=== PATIENT | male | born 1960 | race Caucasian/White ===

== ENCOUNTER → 2020-01-26 07:35 | Outpatient (CLI) | payer OTHER, SELFPAY ==
[2019-12-29 13:16] VITALS: BMI 25.9
--- NOTE | 2020-01-26 07:40 | ECHOD_ITS ---
Reason For Study: MVP Procedure This was a 2D Doppler, Color Flow transthoracic echocardiogram. Exam performed in department. Left Ventricle Normal LV size. Left ventricular systolic function is normal. The estimated ejection fraction is 60 %. Normal diastology for age. No regional wall motion abnormalities noted. Right Ventricle Normal RV size. Normal systolic function. Atria Normal left atrium. Normal right atrium. Mitral Valve Moderate mitral valve prolapse. Mild (1+) eccentric mitral valve insufficiency. Tricuspid Valve Normal tricuspid valve. Aortic Valve Trisinus/trileaflet aortic valve. Pulmonic Valve Normal pulmonic valve. Great Vessels Normal aortic root. The pulmonary artery is normal size. Normal inferior vena cava. Pericardium/Pleural No pericardial effusion. MMode/2D Measurements & Calculations LVIDd: 4.3 cm IVSd: 1.2 cm Ao root diam: 3.0 cm LVIDs: 2.4 cm LVPWd: 1.1 cm RVDd: 3.2 cm FS: 44.2 % LAV(MOD-bp): 60.7 ml LVAd ap4: 33.6 cm2 SV(MOD-sp4): 63.5 ml LAV(MOD-bp) Indexed: 28.5 ml/m2 EDV(MOD-sp4): 102.3 ml LAV(MOD-sp2): 59.5 ml EDV(sp4-el): 107.7 ml LAV(MOD-sp4): 51.8 ml LVAs ap4: 18.9 cm2 ESV(MOD-sp4): 38.8 ml ESV(sp4-el): 40.2 ml EF(MOD-sp4): 62.1 % EF(sp4-el): 62.6 % SV(sp4-el): 67.5 ml LA A4 area: 17.1 cm2 LA dimension(2D): 3.8 cm RA A4 area: 14.2 cm2 Doppler Measurements & Calculations MV E max guru: 62.4 cm/sec Lat Peak E' Guru: 3.9 cm/sec Med Peak E' Guru: 5.7 cm/sec MV A max guru: 45.0 cm/sec E/E' lat: 15.8 E/E' med: 11.0 MV E/A: 1.4 Ao V2 max: 144.8 cm/sec LV V1 max: 91.4 cm/sec PA V2 max: 153.9 cm/sec Ao max P.4 mmHg LV V1 max P.3 mmHg TR max guru: 182.8 cm/sec TR max P.4 mmHg Interpretation Summary Normal LV size. Left ventricular systolic function is normal. The estimated ejection fraction is 60 %. Moderate mitral valve prolapse. Mild (1+) eccentric mitral valve insufficiency. Ordering Physician: Alberto Anderson Referring Physician: Alberto Anderson Performed By: Libertad Hidalgo RDCS
== END ==
PROVIDERS: Referring Provider Internal Medicine Cardiovascular Disease; Visit Provider Internal Medicine Cardiovascular Disease
DX: I34.1 Nonrheumatic mitral (valve) prolapse (principal)
CPT/HCPCS: 93306

== ENCOUNTER → 2020-07-14 07:14 | Outpatient (CLI) | payer OTHER, SELFPAY ==
[2020-02-02 14:55] VITALS: BMI 25.7
--- NOTE | 2020-07-14 07:17 | CT_ITS ---
STUDY: CT BRAIN AND SINUSES WITHOUT CONTRAST REASON FOR EXAM: Male, 59 years old. 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 Individualized dose optimization techniques were used for this CT. COMPARISON: No relevant priors. FINDINGS: CT BRAIN CLINICAL HISTORY: 59 years Male, SINUSITIS-RT SIDE, PREV INJURY TO RT EYE HAS RT EYE PROSTHETIC, HX-CVA X 3, PE TECHNIQUE: A CT scan of the head was performed without IV contrast in the axial plane. Coronal and sagittal reconstruction images were also obtained. This exam was performed according to our departmental dose-optimization program, which includes automated exposure control, adjustment of the mA and/or kV according to patient size and/or use of iterative reconstruction technique. FINDINGS: The neida, medulla, and cerebellum appear to be normal. The ventricles and sulci are normal in size and shape. In the posterior right vega radiata using a 6 mm nodular density which contains a peripheral calcification. Calcified granuloma versus a slow growing tumor such as a glioma or oligodendroglioma are all diagnostic possibilities. An MRI of the head with IV contrast is recommended for further evaluation. The basal ganglia appear to be normal. 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 Old fracture deformities are noted involving the right lamina preparation in the floor of the right orbit from a previous right orbital injury.The frontal, ethmoid, left maxillary, and sphenoid sinuses are normal. The mastoid air cells are normal. IMPRESSION: Normal CT scan of the head. 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 Old fracture deformities are noted involving the right lamina papyracea and floor of the right orbit. Frontal Sinus and Recess: The frontal and sphenoid sinuses appear to be normal. The frontoethmoidal recesses and the sphenoethmoid recesses appear to be intact. There is mucoperiosteal reaction involving both ethmoid sinuses. This is causing occlusion of the left maxillary infundibula with mucoperiosteal reaction involving the floor of the left maxillary sinus. Because of the previous fracture of the right lamina papyracea there is mucoperiosteal reaction with occlusion of the right ethmoid sinus and the right maxillary infundibula with atelectasis and mucoperiosteal reaction involving the right maxillary sinus. Nasal Turbinate (Right): Middle Turbinate (Right): Normal. Middle Turbinate (Left): Normal. Inferior Turbinate (Right): Normal. Inferior Turbinate (Left): Normal. Nasal Septum: There is deviation due to a previous healed fracture involving the posterior nasal septum with convexity towards the left. Nasal Airway: Clear. Cribiform Plate / Anterior Cranial Fossa: Normal. Orbits: As mentioned previously the patient has had enucleation of the right eye with a right orbital prosthesis in place and old fracture deformities involving the right lamina papyracea and floor of the right maxillary sinus. CT/Sinus/Facial Bone IMPRESSION: 1. A 6 mm nodular density is noted in the posterior right vega radiata containing peripheral calcification. This probably represents a granuloma, possible old resolved hematoma, however, a partially calcified meningioma cannot be completely excluded and a nonemergent MRI of the head with IV contrast is recommended for further evaluation. 2. Previous injury and enucleation of the right globe with a right orbital prosthesis in place and old fracture deformity involving the medial right lamina papyracea in the floor of the right maxillary sinus. 3. Low-grade sinusitis involving the ethmoid and maxillary sinuses bilaterally. Electronically Signed: Alfred Matta, at 7:55 EST Tel , Service support ,
== END ==
PROVIDERS: Referring Provider Otolaryngology; Visit Provider Otolaryngology
DX: J32.9 Chronic sinusitis, unspecified (principal)
CPT/HCPCS: 70486

== ENCOUNTER 2020-07-26 17:26 | Emergency (ER) | payer OTHER, SELFPAY ==
[2020-02-02 14:55] VITALS: BMI 25.7
[2020-07-26 17:27] VITALS: BP 139/80; PULSE 95; RESP 18; TEMP 36.6; O2SAT 97; BMI 25.0
--- NOTE | 2020-07-26 18:14 | ED.RN ---
1800 PT LWBS, STATES [facility] TO BE SEEN
== END 2020-07-26 18:00 | disposition left against medical advice (07) ==
LOC: ED 18:29
PROVIDERS: Emergency Provider Emergency Medicine
DX: Z53.21 Procedure and treatment not carried out due to patient leaving prior to being seen by health care provider (principal)

== ENCOUNTER → 2020-08-01 10:13 | Outpatient (CLI) | payer OTHER, SELFPAY ==
[2020-02-02 14:55] VITALS: BMI 25.7
[2020-07-26 17:27] VITALS: BMI 25.0
== END ==
PROVIDERS: Referring Provider Otolaryngology; Visit Provider Otolaryngology
DX: Z11.59 Encounter for screening for other viral diseases (principal)
CPT/HCPCS: 87635; C9803; U0003

== ENCOUNTER → 2020-08-17 | Outpatient (CLI) | payer OTHER, SELFPAY ==
[2020-07-26 17:27] VITALS: BMI 25.0
== END | disposition home or self-care (01) ==
LOC: LABSPEC 15:38
PROVIDERS: PCP Internal Medicine; Referring Provider Otolaryngology Otolaryngology/Facial Plastic Surgery; Visit Provider Otolaryngology Otolaryngology/Facial Plastic Surgery
DX: J32.9 Chronic sinusitis, unspecified (principal)
CPT/HCPCS: 87070; 87077; 87186; 87205

== ENCOUNTER → 2020-11-01 | Outpatient (CLI) | payer OTHER, SELFPAY | END | disposition home or self-care (01) | LOC: LABSPEC 15:07 | PROVIDERS: PCP Internal Medicine; Referring Provider Otolaryngology; Visit Provider Otolaryngology | DX: J32.9 Chronic sinusitis, unspecified (principal) | CPT/HCPCS: 87070; 87186; 87205 ==

== ENCOUNTER 2021-11-26 15:28 | Outpatient (CLI) | payer OTHER, SELFPAY ==
--- NOTE | 2021-11-26 15:33 | VDLE_ITS ---
Reason For Study: pain Procedure LEFT This is a venous duplex using B-mode, color GSV is normal. flow and spectral Doppler. CFV is compressible, spontaneous, phasic, Exam performed in department. competent, and demonstrates normal The exam was abbreviated due to the COVID 19 augmentation. protocol. FV is compressible, spontaneous, phasic, The exam was diagnostic. competent and demonstrates normal A preliminary report was called and/or faxed augmentation. to Corey ALBERT. POP V is compressible, spontaneous, phasic, competent and demonstrates normal augmentation. T/P Trunk is compressible. PTV is compressible. LT PerV is compressible. VL/Venous Duplex US, Unilateral Interpretation Summary There is no evidence of left lower extremity deep vein thrombosis. Left great s aphenous vein appears patent and compressible segmentally. Abbreviated COVID-19 protocol utilized Ordering Physician: Corey Cannon Performed By: Jesse Resendiz RVCarlos Manuel
== END 2021-11-26 23:59 | disposition home or self-care (01) ==
LOC: CVS 15:30
PROVIDERS: PCP Internal Medicine; Referring Provider Physician Assistant; Visit Provider Physician Assistant
DX: M79.662 Pain in left lower leg (principal); Z86.73 Personal history of transient ischemic attack (TIA), and cerebral infarction without residual deficits; Z86.711 Personal history of pulmonary embolism
CPT/HCPCS: 93971

== ENCOUNTER → 2022-04-23 | Outpatient (CLI) | payer OTHER, SELFPAY ==
--- NOTE | 2022-04-23 10:15 | EKG12_ITS ---
Test Reason : PREOP Blood Pressure : / mmHG Vent. Rate : 067 BPM Atrial Rate : 067 BPM P-R Int : 160 ms QRS Dur : 108 ms QT Int : 416 ms P-R-T Axes : 070 037 053 degrees QTc Int : 439 ms Normal sinus rhythm Normal ECG When compared with ECG of 28-JUL-2017 18:53, No significant change was found Confirmed by SCARLETT DEY, DAYAN ([id number]), movie editor JUANIS BARNETT ([id number]) on 04/23/2022 1:43:53 PM Referred By: Chino Sena Confirmed By:DAYAN PANTOJA MD
[2022-04-23 11:24] LABS: Hematocrit 44.3 % (40-54); Hemoglobin 14.6 g/dL (13.0-16.5); Mean Corpuscular Hgb 29.3 pg (27.0-32.0); Mean Corpuscular Volume 88.8 fL (80-94); Mean Platelet Vol. 10.1 fl (6.2-12.0); Platelet Count 170 K/mm3 (150-450); RBC Distribution Width CV 12.9 % (11.6-14.6); RBC Distribution Width SD 41.6 fl (35.1-43.9); Red Blood Count 4.99 M/mm3 (4.6-6.2); White Blood Count 6.2 K/mm3 (4.4-11.0)
[2022-04-23 12:00] LABS: Anion Gap 5 (5-15); BUN 18 mg/dL (7-18); BUN/Creat Ratio 17.8 RATIO (10-20); Chloride 107 mmol/L (98-107); Creatinine, Serum 1.01 mg/dL (0.70-1.30); EST Glomerular Filtration Rate 80 mL/min (>60); Est Glom Filt Rate - Afr Amer 96 mL/min (>60); Glucose 98 mg/dL (74-106); Potassium 4.9 mmol/L (3.5-5.1); Sodium Level 141 mmol/L (136-145)
== END | disposition home or self-care (01) ==
LOC: PSN 10:06
PROVIDERS: PCP Internal Medicine; Referring Provider Orthopaedic Surgery; Visit Provider Orthopaedic Surgery
DX: Z01.810 Encounter for preprocedural cardiovascular examination (principal); Z01.818 Encounter for other preprocedural examination
CPT/HCPCS: 36415; 80048; 85027; 93005

== ENCOUNTER → 2023-09-04 | Outpatient (CLI) | payer OTHER, SELFPAY ==
--- NOTE | 2023-09-04 07:12 | CT_ITS ---
STUDY: CT PARANASAL SINUSES WITHOUT CONTRAST REASON FOR EXAM: Male, 63 years old. CHRONIC SINUSITIS RADIATION DOSAGE (If Supplied By Facility): CTDIvol = ( 33.06 ) mGy, DLP = ( 809.06 ) mGycm TECHNIQUE: The patient was scanned in a multi-detector CT scanner. High resolution transaxial imaging was performed and coronal images were reconstructed. Individualized dose optimization techniques were used for this CT. COMPARISON: CT of the sinuses dated July 14, 2020 FINDINGS: Right orbital prosthesis noted. Old fracture deformity of the right orbital floor noted. FRONTAL SINUSES: Normal development and aeration of the bilateral frontal sinuses without mucosal inflammatory disease. ETHMOIDAL SINUSES: Moderate mucus opacification of the bilateral ethmoid air cells. MAXILLARY SINUSES: Redemonstration of moderate to severe mucous opacification of the right maxillary sinus, slightly increased from the prior study. Chronic mucoperiosteal reaction and cortical thickening of the right maxillary sinus. There is partial obstruction of the right ostiomeatal complex. Mild mucosal thickening is present in the anterior wall of the left maxillary sinus. A small mucus retention cyst is also present in the anterior inferior aspect of the left maxillary sinus. SPHENOIDAL SINUSES: Normal aeration of the bilateral sphenoid sinuses and there is no mucosal inflammatory disease. MIDDLE TURBINATES: Normal bilateral middle turbinates without a irma bullosa or paradoxical curvature. INFERIOR TURBINATES: Mild hypertrophy of the right inferior nasal turbinate noted.. NASAL SEPTUM: Normal midline nasal septum and there is no nasal septal mass lesions, deviation or spur. Normal anterior cranial fossa, erik delta and cribriform plate. Normal bilateral orbital contents. Normal nasopharynx without adenoidal pad hypertrophy, or a posterior nasopharyngeal retention cyst. There is no demonstrated enhancing soft tissue or osseous abnormality. MASTOID SINUSES: Normal bilateral mastoid air cells which are clear. Normal bilateral inner ear ossicles and tympanic membranes. The external auditory canals are unremarkable. CT/Sinus/Facial Bone IMPRESSION: 1. Moderate mucus opacification of bilateral ethmoid air cells 2. MAXILLARY SINUSES: Redemonstration of moderate to severe mucous opacification of the right maxillary sinus, slightly increased from the prior study. Chronic mucoperiosteal reaction and cortical thickening of the right maxillary sinus. There is partial obstruction of the right ostiomeatal complex. Mild mucosal thickening is present in the anterior wall of the left maxillary sinus. A small mucus retention cyst is also present in the anterior inferior aspect of the left maxillary sinus. 3. Right orbital prosthesis noted. Old fracture deformity of the right orbital floor noted. Electronically Signed: David White MD at 16:03 EST ,
--- OUTSIDE RECORDS SUMMARY | 2023-09-04 07:12 | XMS RPT_ITS | CCD ---
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 unremarkable. Previous digital rectal exam demonstrated internal hemorrhoid largest was left lateral complex others normal sized Extremities: no clubbing, cyanosis or edema. No adenopathy. Other: LABORATORY VALUES: As Noted RADIOLOGIC STUDIES: As Noted Assessment IMPRESSION: need for screening colonoscopy, left lateral chronic hemorrhoid PLAN: I plan to perform upper and lower endoscopy. We discussed the risks and benefits of the planned endoscopy. I have informed the patient that complications can occur including failure to complete the endoscopy and perforation. The patient had the opportunity to ask questions concerning the planned endoscopy. My staff has also explained the procedure to the patient in understandable terms and has given the patient printed material concerning the procedure. The patient freely consents to surgery. I plan to use golytely bowel preparation for endoscopy I plan to perform an examination under anesthesia, hemorrhoidectomy the following day. The planned surgical procedure was discussed extensively with the patient. The risks, benefits and anticipated outcomes of the procedure, the risks and benefits of the alternatives to the procedure, and the roles and tasks of the personnel to be involved, were discussed with the patient. My staff has also explained the procedure in understandable terms and the patient was given the option to take printed material concerning the planned procedure. The patient had the opportunity to ask questions concerning the planned procedure. The patient freely consents to the planned procedure. Anticipated Surgical Procedure/ CPT Code: Examination Under Anesthesia, Hemorrhoidectomy - 94220-267 Anticipated Anesthetic: General Patient weight: Blood pressure 139/77, pulse 70, temperature 36.6 C (97.8 F), weight 92.9 kg (204 lb 12.8 oz), SpO2 98 %. BMI: Body mass index is 27.78 kg/m . 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 Return to Clinic: The patient is instructed to follow-up with me 1 week post operatively. Oli Fajardo MD documented in this encounter [facility] 05-16-2022 Note HNO ID: [id number] Author: Oli Fajardo MD Service: ? Author Type: Physician Type: Progress Notes Filed: 05/16/2022 5:34 PM Note Text: FOLLOW UP VISIT - HEMORRHOID BANDING NAME: Cong Arcos [facility] NO.: [id number] DATE OF SERVICE: May 16, 2022 : 1960 REFERRING PHYSICIAN: Dinesh Lee NP Cong is a patient I am following for symptomatic internal hemorrhoids. The patient returns for hemorrhoidal banding. They have not take aspirin or other blood thinners for over 7 days. I performed hemorrhoidal banding of the left lateral complex in the past. He notes overall improvement but still notes some symptoms of prolapse and discomfort. The patient also notes swelling over the olecranon area of his right elbow. He was referred to Dr. Sena for what turned out to be a chronic bursitis. He had a drain on this 2 weeks previously. VITALS: Blood pressure 115/75, pulse 70. There is no height or weight on file to calculate BMI. On examination, the patient has prolapsing interal hemorrhoidal at the left lateral complex. Digital rectal exam reveals both the left lateral complex. PROCEDURE: HEMORRHOIDAL BANDING The risks, benefits and anticipated outcomes of the procedure, the risks and benefits of the alternatives to the procedure, and the roles and tasks of the personnel to be involved, were discussed with the patient, and the patient consents to the procedure and agrees to proceed. After consent was obtained and the site, person, and procedure verified, the patient was positioned. A digital rectal exam was performed demonstrating internal hemorrhoids in the left lateral area position without other abnormalities. An anoscope was introduced demonstrating symptomatic internal hemorrhoid in the right anterior complex. The left lateral complex demonstrated an ulcer from the previously placed band. The hemorrhoidal complex was grasped with an forceps without causing discomfort to the patient. A single band was deployed over the right anterior complex. The patient remained asymptomatic. The anoscope was removed. The patient tolerated the procedure well. Assessment IMPRESSION: Status post right anterior interal hemorrhoidal banding PLAN: If the patient notes any problems or pain, they should contact me immediately. The patient was informed that- A small amount of bleeding is common when the hemorrhoid sloughs at 3-5 days. Do not that aspirin for the next week. If you have significant bleeding or other problems, contact our office. He still has mixed prolapse of the left lateral complex which was banded. I discussed with him if this is not improving after the next few attempts would recommend operative hemorrhoidectomy. Diagnoses: No diagnosis found. Return to Clinic: The patient is instructed to follow-up with me in 1 month. Oli Fajardo MD [facility] 05-16-2022 History of Presen t illness Narrative FOLLOW UP VISIT - HEMORRHOID BANDING NAME: Cong Arcos [facility] NO.: [id number] DATE OF SERVICE: May 16, 2022 : 1960 REFERRING PHYSICIAN: Dinesh Lee NP Cong is a patient I am following for symptomatic internal hemorrhoids. The patient returns for hemorrhoidal banding. They have not take aspirin or other blood thinners for over 7 days. I performed hemorrhoidal banding of the left lateral complex in the past. He notes overall improvement but still notes some symptoms of prolapse and discomfort. The patient also notes swelling over the olecranon area of his right elbow. He was referred to Dr. Sena for what turned out to be a chronic bursitis. He had a drain on this 2 weeks previously. VITALS: Blood pressure 115/75, pulse 70. There is no height or weight on file to calculate BMI. On examination, the patient has prolapsing interal hemorrhoidal at the left lateral complex. Digital rectal exam reveals both the left lateral complex. PROCEDURE: HEMORRHOIDAL BANDING The risks, benefits and anticipated outcomes of the procedure, the risks and benefits of the alternatives to the procedure, and the roles and tasks of the personnel to be involved, were discussed with the patient, and the patient consents to the procedure and agrees to proceed. After consent was obtained and the site, person, and procedure verified, the patient was positioned. A digital rectal exam was performed demonstrating internal hemorrhoids in the left lateral area position without other abnormalities. An anoscope was introduced demonstrating symptomatic internal hemorrhoid in the right anterior complex. The left lateral complex demonstrated an ulcer from the previously placed band. The hemorrhoidal complex was grasped with an forceps without causing discomfort to the patient. A single band was deployed over the right anterior complex. The patient remained asymptomatic. The anoscope was removed. The patient tolerated the procedure well. Assessment IMPRESSION: Status post right anterior interal hemorrhoidal banding PLAN: If the patient notes any problems or pain, they should contact me immediately. The patient was informed that- A small amount of bleeding is common when the hemorrhoid sloughs at 3-5 days. Do not that aspirin for the next week. If you have significant bleeding or other problems, contact our office. He still has mixed prolapse of the left lateral complex which was banded. I discussed with him if this is not improving after the next few attempts would recommend operative hemorrhoidectomy. Diagnoses: No diagnosis found. Return to Clinic: The patient is instructed to follow-up with me in 1 month. Oli Fajardo MD UNIVERSAL PROTOCOL / SAFETY CHECKLIST Procedure to be Performed: Anoscopy and hemorrhoidal banding Sign In: A Moment of CARE was completed. Personnel directly involved with the procedure wore the appropriate PPE (Personal Protective Equipment). No special equipment needed. Patient/Surrogate Stated/Verified: PATIENT VERIFIED(optional for EMERGENT procedures): Patient name, Date of , Relevant allergies, and The intended procedure Time Out Communication: Intended patient and procedure match the source documents. Consent documented and matches the intended procedure. No relevant labs, photos, and/or imaging studies were applicable for review. No correct side/site applicable for marking and visibility. No medications required for procedure. No fire risk assessment and interventions applicable. No implant(s) inserted. Sign Out: SIGN OUT (optional for EMERGENT procedures): No specimen collected. All instruments, equipment, possible retained foreign bodies accounted for. Post-procedure follow-up management communicated and Plan of Care Visit completed when applicable. Nalini Burgess RN documented in this encounter [facility] 05-16-2022 Note HNO ID: [id number] Author: Nalini Burgess RN Service: ? Author Type: Registered Nurse Type: Progress Notes Filed: 05/16/2022 5:34 PM Note Text: UNIVERSAL PROTOCOL / SAFETY CHECKLIST Procedure to be Performed: Anoscopy and hemorrhoidal banding Sign In: A Moment of CARE was completed. Personnel directly involved with the procedure wore the appropriate PPE (Personal Protective Equipment). No special equipment needed. Patient/Surrogate Stated/Verified: PATIENT VERIFIED(optional for EMERGENT procedures): Patient name, Date of , Relevant allergies, and The intended procedure Time Out Communication: Intended patient and procedure match the source documents. Consent documented and matches the intended procedure. No relevant labs, photos, and/or imaging studies were applicable for review. No correct side/site applicable for marking and visibility. No medications required for procedure. No fire risk assessment and interventions applicable. No implant(s) inserted. Sign Out: SIGN OUT (optional for EMERGENT procedures): No specimen collected. All instruments, equipment, possible retained foreign bodies accounted for. Post-procedure follow-up management communicated and Plan of Care Visit completed when applicable. Nalini Burgess RN [facility] 05-16-2022 Instructions Nalini Burgess RN - 05/16/2022 9:02 AM EDT The following instructions are important for you related to your office visit today with the [facility] Surgeons. Instructions After HEMORRHODIAL BANDING If you note worsening anal pain, fever or significant anal redness or swelling contact the office immediately. Minor bleeding from the anus is common. If there is continued bleeding, you should contact our office immediately. The banded hemorrhoidal complex will slough off in 4-5 days on average. Bleeding or some tissue with a black rubber band may be seen in the toilet bowl. You may require multiple bandings to correct your internal hemorrhoidal symptoms. Please make an appointment to return to our office in 3-4 weeks for possible repeat banding if your symptoms have not resolved. You can take Tylenol & Ibuprofen for pain. If you note any additional difficulties, questions, or concerns, you should contact our office immediately @ [phone] and ask to be transferred to the General Surgery department. documented in this encounter [facility] 04-11-2022 Note HNO ID: [id number] Author: Oli Fajardo MD Service: ? Author Type: Physician Type: Progress Notes Filed: 04/11/2022 8:09 AM Note Text: FOLLOW UP VISIT - HEMORRHOID BANDING [id number] DATE OF SERVICE: 04/11/2022 : 1960 REFERRING PHYSICIAN: Dinesh Lee NP Cong is a patient I am following for symptomatic internal hemorrhoids. The patient returns for hemorrhoidal banding. They have not take aspirin or other blood thinners for over 7 days. I performed hemorrhoidal banding of the left lateral complex in the past. He notes overall improvement but still notes some symptoms of prolapse and discomfort. The patient also notes swelling over the olecranon area of his right elbow. VITALS: Blood pressure 124/72, height 182.9 cm (6'). Body mass index is 25.85 kg/m?. On examination, the patient has prolapsing interal hemorrhoidal at the left lateral complex. Digital rectal exam reveals both the left lateral and right anterior complex. Ultrasound was used to examine the area. 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 PROCEDURE: HEMORRHOIDAL BANDING The risks, benefits and anticipated outcomes of the procedure, the risks and benefits of the alternatives to the procedure, and the roles and tasks of the personnel to be involved, were discussed with the patient, and the patient consents to the procedure and agrees to proceed. After consent was obtained and the site, person, and procedure verified, the patient was positioned. A digital rectal exam was performed demonstrating internal hemorrhoids in the left lateral area position without other abnormalities. An anoscope was introduced demonstrating symptomatic internal hemorrhoid in the right anterior complex. The left lateral complex demonstrated an ulcer from the previously placed band. The hemorrhoidal complex was grasped with an forceps without causing discomfort to the patient. A single band was deployed over the right anterior complex. The patient remained asymptomatic. The anoscope was removed. The patient tolerated the procedure well. Assessment IMPRESSION: Status post right anterior interal hemorrhoidal banding PLAN: If the patient notes any problems or pain, they should contact me immediately. The patient was informed that- A small amount of bleeding is common when the hemorrhoid sloughs at 3-5 days. Do not that aspirin for the next week. If you have significant bleeding or other problems, contact our office. Diagnoses: (K64.9) Hemorrhoids, unspecified hemorrhoid type (primary encounter diagnosis) Return to Clinic: The patient is instructed to follow-up with me in 1 month. Oli Fajardo MD [facility] 04-11-2022 Note HNO ID: [id number] Author: Sarah Guan RN Service: ? Author Type: Registered Nurse Type: Progress Notes Filed: 04/11/2022 8:09 AM Note Text: UNIVERSAL PROTOCOL / SAFETY CHECKLIST Procedure to be Performed: ANOSCOPY AND HEMORRHOIDAL BANDING Sign In: A Moment of CARE was completed. Personnel directly involved with the procedure wore the appropriate PPE (Personal Protective Equipment). No special equipment needed. Patient/Surrogate Stated/Verified: PATIENT VERIFIED(optional for EMERGENT procedures): Patient name, Date of , Relevant allergies, and The intended procedure Time Out Communication: Intended patient and procedure match the source documents. Consent documented and matches the intended procedure. No relevant labs, photos, and/or imaging studies were applicable for review. Correct side/site marked and visible. No medications required for procedure. No fire risk assessment and interventions applicable. No implant(s) inserted. Sign Out: SIGN OUT (optional for EMERGENT procedures): No specimen collected. No instruments, equipment or retained foreign bodies applicable. Post-procedure follow-up management communicated and Plan of Care Visit completed when applicable. Sarah Guan RN [facility] 04-11-2022 Note HNO ID: [id number] Author: Oli Fajardo MD Service: ? Author Type: Physician Type: Progress Notes Filed: 04/11/2022 8:09 AM Note Text: FOLLOW UP VISIT - HEMORRHOID BANDING NAME: Cong Arcos [facility] NO.: [id number] DATE OF SERVICE: 04/11/2022 : 1960 REFERRING PHYSICIAN: Dinesh Lee NP Cong is a patient I am following for symptomatic internal hemorrhoids. The patient returns for hemorrhoidal banding. They have not take aspirin or other blood thinners for over 7 days. I performed hemorrhoidal banding of the left lateral complex in the past. He notes overall improvement but still notes some symptoms of prolapse and discomfort. The patient also notes swelling over the olecranon area of his right elbow. VITALS: Blood pressure 124/72, height 182.9 cm (6'). Body mass index is 25.85 kg/m?. On examination, the patient has prolapsing interal hemorrhoidal at the left lateral complex. Digital rectal exam reveals both the left lateral and right anterior complex. Ultrasound was used to examine the area. It looked to me like there was a tophi Goddess in the area I suspected the patient has gout but recommend he follow-up with his PCP or orthopedics for aspiration to be sure and then get appropriate treatment. PROCEDURE: HEMORRHOIDAL BANDING The risks, benefits and anticipated outcomes of the procedure, the risks and benefits of the alternatives to the procedure, and the roles and tasks of the personnel to be involved, were discussed with the patient, and the patient consents to the procedure and agrees to proceed. After consent was obtained and the site, person, and procedure verified, the patient was positioned. A digital rectal exam was performed demonstrating internal hemorrhoids in the left lateral area position without other abnormalities. An anoscope was introduced demonstrating symptomatic internal hemorrhoid in the right anterior complex. The left lateral complex demonstrated an ulcer from the previously placed band. The hemorrhoidal complex was grasped with an forceps without causing discomfort to the patient. A single band was deployed over the right anterior complex. The patient remained asymptomatic. The anoscope was removed. The patient tolerated the procedure well. Assessment IMPRESSION: Status post right anterior interal hemorrhoidal banding PLAN: If the patient notes any problems or pain, they should contact me immediately. The patient was informed that- A small amount of bleeding is common when the hemorrhoid sloughs at 3-5 days. Do not that aspirin for the next week. If you have significant bleeding or other problems, contact our office. Diagnoses: (K64.9) Hemorrhoids, unspecified hemorrhoid type (primary encounter diagnosis) Return to Clinic: The patient is instructed to follow-up with me in 1 month. Oli Fajardo MD [facility] 04-11-2022 History of Presen t illness Narrative FOLLOW UP VISIT - HEMORRHOID BANDING NAME: Cong Arcos [facility] NO.: [id number] DATE OF SERVICE: 04/11/2022 : 1960 REFERRING PHYSICIAN: Dinesh Lee NP Cong is a patient I am following for symptomatic internal hemorrhoids. The patient returns for hemorrhoidal banding. They have not take aspirin or other blood thinners for over 7 days. I performed hemorrhoidal banding of the left lateral complex in the past. He notes overall improvement but still notes some symptoms of prolapse and discomfort. The patient also notes swelling over the olecranon area of his right elbow. VITALS: Blood pressure 124/72, height 182.9 cm (6'). Body mass index is 25.85 kg/m . On examination, the patient has prolapsing interal hemorrhoidal at the left lateral complex. Digital rectal exam reveals both the left lateral and right anterior complex. Ultrasound was used to examine the area. 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 PROCEDURE: HEMORRHOIDAL BANDING The risks, benefits and anticipated outcomes of the procedure, the risks and benefits of the alternatives to the procedure, and the roles and tasks of the personnel to be involved, were discussed with the patient, and the patient consents to the procedure and agrees to proceed. After consent was obtained and the site, person, and procedure verified, the patient was positioned. A digital rectal exam was performed demonstrating internal hemorrhoids in the left lateral area position without other abnormalities. An anoscope was introduced demonstrating symptomatic internal hemorrhoid in the right anterior complex. The left lateral complex demonstrated an ulcer from the previously placed band. The hemorrhoidal complex was grasped with an forceps without causing discomfort to the patient. A single band was deployed over the right anterior complex. The patient remained asymptomatic. The anoscope was removed. The patient tolerated the procedure well. Assessment IMPRESSION: Status post right anterior interal hemorrhoidal banding PLAN: If the patient notes any problems or pain, they should contact me immediately. The patient was informed that- A small amount of bleeding is common when the hemorrhoid sloughs at 3-5 days. Do not that aspirin for the next week. If you have significant bleeding or other problems, contact our office. Diagnoses: (K64.9) Hemorrhoids, unspecified hemorrhoid type (primary encounter diagnosis) Return to Clinic: The patient is instructed to follow-up with me in 1 month. Oli Fajardo MD UNIVERSAL PROTOCOL / SAFETY CHECKLIST Procedure to be Performed: ANOSCOPY AND HEMORRHOIDAL BANDING Sign In: A Moment of CARE was completed. Personnel directly involved with the procedure wore the appropriate PPE (Personal Protective Equipment). No special equipment needed. Patient/Surrogate Stated/Verified: PATIENT VERIFIED(optional for EMERGENT procedures): Patient name, Date of , Relevant allergies, and The intended procedure Time Out Communication: Intended patient and procedure match the source documents. Consent documented and matches the intended procedure. No relevant labs, photos, and/or imaging studies were applicable for review. Correct side/site marked and visible. No medications required for procedure. No fire risk assessment and interventions applicable. No implant(s) inserted. Sign Out: SIGN OUT (optional for EMERGENT procedures): No specimen collected. No instruments, equipment or retained foreign bodies applicable. Post-procedure follow-up management communicated and Plan of Care Visit completed when applicable. Sarah Guan RN FOLLOW UP VISIT - HEMORRHOID BANDING NAME: Cong Arcos [facility] NO.: [id number] DATE OF SERVICE: 04/11/2022 : 1960 REFERRING PHYSICIAN: Dinesh Lee NP Cong is a patient I am following for symptomatic internal hemorrhoids. The patient returns for hemorrhoidal banding. They have not take aspirin or other blood thinners for over 7 days. I performed hemorrhoidal banding of the left lateral complex in the past. He notes overall improvement but still notes some symptoms of prolapse and discomfort. The patient also notes swelling over the olecranon area of his right elbow. VITALS: Blood pressure 124/72, height 182.9 cm (6'). Body mass index is 25.85 kg/m . On examination, the patient has prolapsing interal hemorrhoidal at the left lateral complex. Digital rectal exam reveals both the left lateral and right anterior complex. Ultrasound was used to examine the area. It looked to me like there was a tophi Goddess in the area I suspected the patient has gout but recommend he follow-up with his PCP or orthopedics for aspiration to be sure and then get appropriate treatment. PROCEDURE: HEMORRHOIDAL BANDING The risks, benefits and anticipated outcomes of the procedure, the risks and benefits of the alternatives to the procedure, and the roles and tasks of the personnel to be involved, were discussed with the patient, and the patient consents to the procedure and agrees to proceed. After consent was obtained and the site, person, and procedure verified, the patient was positioned. A digital rectal exam was performed demonstrating internal hemorrhoids in the left lateral area position without other abnormalities. An anoscope was introduced demonstrating symptomatic internal hemorrhoid in the right anterior complex. The left lateral complex demonstrated an ulcer from the previously placed band. The hemorrhoidal complex was grasped with an forceps without causing discomfort to the patient. A single band was deployed over the right anterior complex. The patient remained asymptomatic. The anoscope was removed. The patient tolerated the procedure well. Assessment IMPRESSION: Status post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 AROM:WFL Calcaneal eversion: Right: limited but nearly normal Left: very restricted Hallux dorsiflexion: Open chain right: >65 left: >65 Closed chain right: >9 left: >9 Alignment: Rest: Medial arch appearance: Right:High Left:High Equinus: Right:forefoot Left:forefoot Leg length (ASIS to medial malleolus): Right: 99.5cm Left: 97cm Prone: Alignment: Subtalar neutral: Right: rearfoot:0 degrees Forefoot: 2 degrees varus Left: Rearfoot: 0 degrees Forefoot: 2 degrees varus First Ray Position: Right: pf Left: pf First Ray Mobility: Right: semi-rigid Left:semi-rigid WEIGHT BEARING: Alignment: Rest: Medial arch appearance: Right: High Left High Calcaneal stance position: Right: everted 1 degree Left everted 1 degree Knee position: Right: Varus Left Varus Subtalar Neutral: Medial arch appearance: Right High Left:High Calcaneal stance position: Right: inverted Left: inverted Forefoot position: Right: off ground Left: flat on ground Knee position: Right: varus Left varus Mobility: Hallux dorsiflexion Closed chain: Right: >9 Left >9 Midtarsal Mobility: (navicular drop) Right: hypo <6mm Left:hypo <6mm Rearfoot excursion: Right:<4 hypo Left: <4 hypo FUNCTIONAL EVALUATION: Balance(SL): ability/quality Right: unsteady Left: unsteady Balance Excursion Test: Balance and wedge testing not necessary secondary to cavus deformity that will not be posted. Gait Assessment: Walking: normal Running: not tested Orthotic Design Request Shoe size: 10.5. Weight: 190 pounds. 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 Education: Education Learning Preferences: Demonstration;Explanation;Printe d Materials;Performance Barriers: None Learning/educational needs: Lifestyle changes;Plan of Care;Gait Training;Body Mechanics;Brace Fit;Health promotion Education Provided: Yes, see treatment interventions for education provided Education Provided To: Patient Education Mode/Type: Demonstration;Explanation/Discus amina;Literature/Printed Materials Response to Education/Teach Back: States/Identifies;Requires Review/Additional Education TREATMENT: PT Treatment Interventions: Orthotic Mgmt/Train (Initial) Evaluation Orthotics Management and Training: A thorough and complete biomechanical assessment completed and all results explained to pt in detail. Pt. was educated on the anatomy of affected area, possible source of symptoms and rationale for proposed treatment plan. Adjustments for leg length inequality were discussed extensively. With patient prone, subtalar neutral position digital scans were made of bilateral feet. These scans and and all supporting documentation was prepared for shipment to lab so that custom foot orthotics can be fabricated. Pt was educated on proper fitting shoes to be used with custom foot orthotics. Recommendations were made on brands of shoes that are well constructed and provide appropriate support. Pt was advised to select neutral shoes to pair with the custom foot orthotics despite patient's foot structure. Pt was also given recommendations on supportive sandals and where these can be purchased. Pt was educated on the process that we will follow once custom orthotics arrive in this department and all of the patient's questions were answered. Skilled Intervention: Clinical knowledge and skills required for custom orthotic fabrication and wearing schedule Patient/Family/Caregiver Education: Precautions, purpose and use of orthosis Wearing schedule explained to pt in detail Discussed management of any symptoms related to wearing the orthosis Billing * Evaluation Moderate Complexity: 1 Unit Orthotic Mgmt/Train (Initial) Treatment Minutes: 30 Total Treatment Time Minutes (timed/untimed): 60 Frederic Fan PT documented in this encounter [facility] 12-04-2021 History of Presen t illness Narrative Radiology Service Progress Note PATIENT NAME: Cong Bailon DATE OF SERVICE: December 04, 2021 TIME: 8:32 AM PATIENT IDENTITY VERIFICATION COMPLETED USING TWO (2) IDENTIFIERS: Name and Date of confirmed by patient verbally. FALL SCREENING: Has the patient had 2 falls in the last year or 1 fall with injury or currently using an Ambulatory Assistive Device (Walker, Cane, Wheelchair, Crutches, etc.)? No PATIENT GENDER DATA: Male PATIENT RELEVANT IMPLANT DATA REVIEWED: Yes RADIOLOGY DEPARTMENT: General X-ray: Exam(s) Completed: Lower Extremity X-Ray(s): Ankle, Left and Wt. Bearing and Foot, Left and Wt. Bearing PERIPHERAL IV DATA: Not applicable SIGNED BY: RT Suad(R) December 04, 2021 8:32 AM documented in this encounter [facility] documented as of this encounter (statuses as of 12/05/2021) [facility] History of Past illness Narrative* Problem Noted Date Resolved Date Other pulmonary embolism and infarction 06/29/20 08 08/02/2010 Overview: CT 06-22: resolution of previous emboli and LLL infiltrate (presented with PE in 04-22, LE Doppler negative) Protein C 5 (74-151) and S 39 (60-145) levels were low in 2-: need to clarify if taking Coumadin at the time Occurred in 04-23 in L lower [place]: reportedly no source found in the legs 7.4 / 42 / 86 / 97% in 06-23 on RA Mitri ordered C and S in 06-24: 04-24 note suggests a Protein C deficiency (note from 09-23 notes levels tested off coum) Protein C 104 (74-151), S 86 (60-145) in 10-23 documented as of this encounter (statuses as of 12/27/2021) [facility] History of Past illness Narrative* Problem Noted Date Resolved Date Other pulmonary embolism and infarction 06/29/20 08 08/02/2010 Overview: CT 06-22: resolution of previous emboli and LLL infiltrate (presented with PE in 04-22, LE Doppler negative) Protein C 5 (74-151) and S 39 (60-145) levels were low in 09-23: need to clarify if taking Coumadin at the time Occurred in 04-23 in L lower [place]: reportedly no source found in the legs 7.4 / 42 / 86 / 97% in 06-23 on RA Mitri ordered C and S in 06-24: 04-24 note suggests a Protein C deficiency (note from 09-23 notes levels tested off coum) Protein C 104 (74-151), S 86 (60-145) in 10-23 documented as of this encounter (statuses as of 01/04/2022) [facility] History of Past illness Narrative* Problem Noted Date Resolved Date Other pulmonary embolism and infarction 06/29/20 08 08/02/2010 Overview: CT 11: resolution of previous emboli and LLL infiltrate (presented with PE in 04-22, LE Doppler negative) Protein C 5 (74-151) and S 39 (60-145) levels were low in 2-06: need to clarify if taking Coumadin at the time Occurred in 04-23 in L lower [place]: reportedly no source found in the legs 7.4 / 42 / 86 / 97% in 06-23 on RA Mitri ordered C and S in 06-24: 04-24 note suggests a Protein C deficiency (note from 09-23 notes levels tested off coum) Protein C 104 (74-151), S 86 (60-145) in - documented as of this encounter (statuses as of 03/28/2022) [facility] History of Past illness Narrative* Problem Noted Date Resolved Date Other pulmonary embolism and infarction 06/29/20 08 08/02/2010 Overview: CT 06-22: resolution of previous emboli and LLL infiltrate (presented with PE in 04-22, LE Doppler negative) Protein C 5 (74-151) and S 39 (60-145) levels were low in 09-23: need to clarify if taking Coumadin at the time Occurred in 04-23 in L lower [place]: reportedly no source found in the legs 7.4 / 42 / 86 / 97% in 06-23 on RA Mitri ordered C and S in 06-24: 04-24 note suggests a Protein C deficiency (note from 09-23 notes levels tested off coum) Protein C 104 (74-151), S 86 (60-145) in 10-23 documented as of this encounter (statuses as of 04/11/2022) [facility] History of Past illness Narrative* Problem Noted Date Resolved Date Other pulmonary embolism and infarction 06/29/20 08 08/02/2010 Overview: CT 06-22: resolution of previous emboli and LLL infiltrate (presented with PE in 04-22, LE Doppler negative) Protein C 5 (74-151) and S 39 (60-145) levels were low in 2-06: need to clarify if taking Coumadin at the time Occurred in 04-23 in L lower [place]: reportedly no source found in the legs 7.4 / 42 / 86 / 97% in 06-23 on RA Mitri ordered C and S in 06-24: 04-24 note suggests a Protein C deficiency (note from 09-23 notes levels tested off coum) Protein C 104 (74-151), S 86 (60-145) in 10-23 documented as of this encounter (statuses as of 05/16/2022) [facility] History of Past illness Narrative* Problem Noted Date Resolved Date Other pulmonary embolism and infarction 06/29/20 08 08/02/2010 Overview: CT 11: resolution of previous emboli and LLL infiltrate (presented with PE in 04-22, LE Doppler negative) Protein C 5 (74-151) and S 39 (60-145) levels were low in 2-06: need to clarify if taking Coumadin at the time Occurred in 04-23 in L lower [place]: reportedly no source found in the legs 7.4 / 42 / 86 / 97% in 06-23 on RA Mitri ordered C and S in 06-24: 04-24 note suggests a Protein C deficiency (note from 09-23 notes levels tested off coum) Protein C 104 (74-151), S 86 (60-145) in 10-23 documented as of this encounter (statuses as of 06/06/2022) [facility] History of Past illness Narrative* Problem Noted Date Resolved Date Other pulmonary embolism and infarction 06/29/20 08 08/02/2010 Overview: CT 06-22: resolution of previous emboli and LLL infiltrate (presented with PE in 04-22, LE Doppler negative) Protein C 5 (74-151) and S 39 (60-145) levels were low in 09-23: need to clarify if taking Coumadin at the time Occurred in 04-23 in L lower [place]: reportedly no source found in the legs 7.4 / 42 / 86 / 97% in 06-23 on RA Mitri ordered C and S in 06-24: 04-24 note suggests a Protein C deficiency (note from 09-23 notes levels tested off coum) Protein C 104 (74-151), S 86 (60-145) in 10-23 documented as of this encounter (statuses as of 06/28/2022) [facility] History of Past illness Narrative* Problem Noted Date Resolved Date Other pulmonary embolism and infarction 06/29/20 08 08/02/2010 Overview: CT 06-22: resolution of previous emboli and LLL infiltrate (presented with PE in 04-22, LE Doppler negative) Protein C 5 (74-151) and S 39 (60-145) levels were low in 09-23: need to clarify if taking Coumadin at the time Occurred in 04-23 in L lower [place]: reportedly no source found in the legs 7.4 / 42 / 86 / 97% in 06-23 on RA Mitri ordered C and S in 06-24: 04-24 note suggests a Protein C deficiency (note from 09-23 notes levels tested off coum) Protein C 104 (74-151), S 86 (60-145) in 10-23 documented as of this encounter (statuses as of 06/28/2022) [facility] History of Past illness Narrative* Problem Noted Date Resolved Date Other pulmonary embolism and infarction 06/29/20 08 08/02/2010 Overview: CT 06-22: resolution of previous emboli and LLL infiltrate (presented with PE in 04-22, LE Doppler negative) Protein C 5 (74-151) and S 39 (60-145) levels were low in 09-23: need to clarify if taking Coumadin at the time Occurred in 04-23 in L lower [place]: reportedly no source found in the legs 7.4 / 42 / 86 / 97% in 06-23 on RA Mitri ordered C and S in 06-24: 04-24 note suggests a Protein C deficiency (note from 09-23 notes levels tested off coum) Protein C 104 (74-151), S 86 (60-145) in 10-23 documented as of this encounter (statuses as of 07/26/2022) [facility] History of Past illness Narrative* Problem Noted Date Resolved Date Other pulmonary embolism and infarction 06/29/20 08 08/02/2010 Overview: CT 06-22: resolution of previous emboli and LLL infiltrate (presented with PE in 04-22, LE Doppler negative) Protein C 5 (74-151) and S 39 (60-145) levels were low in 09-23: need to clarify if taking Coumadin at the time Occurred in 04-23 in L lower [place]: reportedly no source found in the legs 7.4 / 42 / 86 / 97% in 06-23 on RA Mitri ordered C and S in 06-24: 04-24 note suggests a Protein C deficiency (note from 09-23 notes levels tested off coum) Protein C 104 (74-151), S 86 (60-145) in - documented as of this encounter (statuses as of 08/01/2022) [facility] History of Past illness Narrative* Problem Noted Date Resolved Date Other pulmonary embolism and infarction 06/29/20 08 08/02/2010 Overview: CT 06-22: resolution of previous emboli and LLL infiltrate (presented with PE in 04-22, LE Doppler negative) Protein C 5 (74-151) and S 39 (60-145) levels were low in -: need to clarify if taking Coumadin at the time Occurred in 04-23 in L lower [place]: reportedly no source found in the legs 7.4 / 42 / 86 / 97% in 06-23 on RA Mitri ordered C and S in 06-24: 04-24 note suggests a Protein C deficiency (note from 09-23 notes levels tested off coum) Protein C 104 (74-151), S 86 (60-145) in 10-23 documented as of this encounter (statuses as of 08/19/2022) [facility] History of Past illness Narrative* Problem Noted Date Resolved Date Other pulmonary embolism and infarction 06/29/20 08 08/02/2010 Overview: CT 06-22: resolution of previous emboli and LLL infiltrate (presented with PE in 04-22, LE Doppler negative) Protein C 5 (74-151) and S 39 (60-145) levels were low in 2-06: need to clarify if taking Coumadin at the time Occurred in 04-23 in L lower [place]: reportedly no source found in the legs 7.4 / 42 / 86 / 97% in 06-23 on RA Mitri ordered C and S in 06-24: 04-24 note suggests a Protein C deficiency (note from 09-23 notes levels tested off coum) Protein C 104 (74-151), S 86 (60-145) in 10-23 documented as of this encounter (statuses as of 08/28/2022) [facility] History of Past illness Narrative* Problem Noted Date Resolved Date Other pulmonary embolism and infarction 06/29/2008/02/2010 Overview: CT 06-22: resolution of previous emboli and LLL infiltrate (presented with PE in 04-22, LE Doppler negative) Protein C 5 (74-151) and S 39 (60-145) levels were low in 2: need to clarify if taking Coumadin at the time Occurred in 04-23 in L lower [place]: reportedly no source found in the legs 7.4 / 42 / 86 / 97% in 06-23 on RA Mitri ordered C and S in 06-24: 04-24 note suggests a Protein C deficiency (note from 09-23 notes levels tested off coum) Protein C 104 (74-151), S 86 (60-145) in 10-23 documented as of this encounter (statuses as of 01/20/2023) [facility] History of Past illness Narrative* Problem Noted Date Diagnosed Date Resolved Date Other pulmonary embolism and infarction 06/29/2008 08/02/2010 Overview: CT 06-22: resolution of previous emboli and LLL infiltrate (presented with PE in 04-22, LE Doppler negative) Protein C 5 (74-151) and S 39 (60-145) levels were low in 09-23: need to clarify if taking Coumadin at the time Occurred in 04-23 in L lower [place]: reportedly no source found in the legs 7.4 / 42 / 86 / 97% in 06-23 on RA Mitri ordered C and S in 06-24: 04-24 note suggests a Protein C deficiency (note from 09-23 notes levels tested off coum) Protein C 104 (74-151), S 86 (60-145) in 10-23 documented as of this encounter (statuses as of 06/23/2023) [facility] Diagnosis Pain Generalized pain Acute left ankle pain [facility] Diagnosis Pes cavus, congenital Talipes cavus Callus of foot Corns and callosities [facility] Diagnosis Pes cavus, congenital- Primary Talipes cavus Callus of foot Corns and callosities documented in this encounter [facility] note* Diagnosis Hemorrhoids, unspecified hemorrhoid type- Primary documented in this encounter [facility] note* Diagnosis Hemorrhoids, unspecified hemorrhoid type- Primary documented in this encounter [facility] note* Diagnosis Hemorrhoids, unspecified hemorrhoid type- Primary Special screening for malignant neoplasms, colon Hemorrhoids, unspecified hemorrhoid type Special screening for malignant neoplasms, colon documented in this encounter [facility] note* Diagnosis Pre-operative examination- Primary Preoperative examination, unspecified Unspecified visual loss Unspecified sleep apnea Depression with anxiety Dysthymic disorder Essential hypertension, benign History of pulmonary embolism Personal history of pulmonary embolism Benign prostatic hyperplasia with lower urinary tract symptoms, symptom details unspecified Hemangioma of other sites Cerebrovascular accident (CVA), unspecified mechanism (HCC) Hemorrhoids, unspecified hemorrhoid type Special screening for malignant neoplasms, colon documented in this encounter [facility] note* Diagnosis Hemorrhoids, unspecified hemorrhoid type- Primary Special screening for malignant neoplasms, colon documented in this encounter [facility] note* Diagnosis Benign prostatic hyperplasia with urinary hesitancy- Primary Hemorrhoids, unspecified hemorrhoid type documented in this encounter [facility] note* Diagnosis Difficulty urinating- Primary Other symptoms involving urinary system documented in this encounter [facility] note* Diagnosis Hemorrhoids, unspecified hemorrhoid type- Primary documented in this encounter [facility] note* Diagnosis Viral URI with cough- Primary Acute upper respiratory infections of unspecified site documented in this encounter [facility] note* Diagnosis Special screening for malignant neoplasms, colon- Primary Hemorrhoids, unspecified hemorrhoid type documented in this encounter [facility] for referral (narrative)* Diagnostic Procedure Only (Routine) - Closed Specialty Diagnoses / Procedures Referred By Iveth garcia Referred To Contact XR IMAGING Diagnoses Acute left ankle pain Procedures XR ANKLE GENERAL 3V AP/LAT/OBL LEFT RADEX ANKLE COMPLETE MINIMUM 3 VIEWS Aidan Quiroz [address] [place] [address] Xr Imaging Referral ID Status Reason Start Date Expiration Date V isits Requested Visits Authorized [id number] Closed Auto-Generate d Referral 12/04/2021 01/03/2023 1 1 * Diagnostic Procedure Only (Routine) - Closed Specialty Diagnoses / Procedures Referred By Iveth gacria Referred To Contact XR IMAGING Diagnoses Pain Procedures XR FOOT GENERAL 3V AP/LAT/OBL LEFT RADEX FOOT COMPLETE MINIMUM 3 VIEWS Aidan Quiroz [address] [place] [address] Xr Imaging Referral ID Status Reason Start Date Expiration Date V isits Requested Visits Authorized [id number] Closed Auto-Generate d Referral 11/26/2021 12/26/2022 1 1 [facility] for referral (narrative)* Outpatient Procedure (Routine) - Authorized Specialty Diagnoses / Procedures Referred By Iveth garcia Referred To Contact [facility] [place] [place] Diagnoses Hemorrhoids, unspecified hemorrhoid type Special screening for malignant neoplasms, colon Procedures COLONOSCOPY SCREENING COLONOSCOPY FLX DX W/COLLJ SPEC WHEN Oli Sandoval MD [address] [place] [address] [facility] Disease [address] [address] Referral ID Status Reason Start Date Expiration Date Visits Requested Visits Authorized [id number] Authorized Auto-Generat ed Referral 06/06/2023 1 1 [facility] for referral (narrative)* Outpatient Procedure (Routine) - Closed Specialty Diagnoses / Procedures Referred By Ivteh garcia Referred To Contact [facility] [place] Diagnoses Hemorrhoids, unspecified hemorrhoid type Special screening for malignant neoplasms, colon Procedures COLONOSCOPY SCREENING COLONOSCOPY FLX DX W/COLLJ SPEC WHEN Oli Sandoval MD [address] [place] [address] [facility] Disease [address] [address] Referral ID Status Reason Start Date Expiration Date V isits Requested Visits Authorized [id number] Closed Auto-Generate d Referral 06/06/2022 06/06/2023 1 1 [facility] for visit Narrative* Diagnostic Procedure Only (Routine) - Closed Specialty Diagnoses / Procedures Referred By Iveth garcia Referred To Contact XR IMAGING Diagnoses Pain Procedures XR FOOT GENERAL 3V AP/LAT/OBL LEFT RADEX FOOT COMPLETE MINIMUM 3 VIEWS GabriellaAidan [address] [place] [address] Xr Imaging Referral ID Status Reason Start Date Expiration Date V isits Requested Visits Authorized [id number] Closed Auto-Generate d Referral 11/26/2021 12/26/2022 1 1 [facility] for visit Narrative* Outpatient Procedure (Routine) - Closed Specialty Diagnoses / Procedures Referred By Iveth garcia Referred To Contact [facility] [place] Diagnoses Hemorrhoids, unspecified hemorrhoid type Special screening for malignant neoplasms, colon Procedures COLONOSCOPY SCREENING COLONOSCOPY FLX DX W/COLLJ SPEC WHEN [facility] Oli Fajardo MD [address] [place] [address] [facility] [address] [place] [address] Referral ID Status Reason Start Date Expiration Date V isits Requested Visits Authorized [id number] Closed Auto-Generate d Referral 06/06/2022 06/06/2023 1 1 [facility] Summary Purpose Family History No Family History Records FoundNo Family History Records Found Advance Directives No Advanced Directives Records FoundNo Advanced Directives Records Found Reason for Referral Specialty Diagnoses / Procedures Referred By Iveth garcia Referred To Contact Urology Diagnoses Benign prostatic hyperplasia with urinary hesitancy Procedures CONSULT TO UROLOGY OFFICE/OUTPATIENT [facility] MDM 60-74 MINUTES Oli Fajardo MD [address] [place] [address] Ran Schneider PA-C [address] [place] [address] Referral ID Status Reason Start Date Expiration Date Visits Requested Visits Authorized [id number] Pending Review PCP Requested Referral 2 08/01/2023 1 1 Medications Administered Section Inactive Administered Medications - up to 3 most recent administrations Medication Order MAR Action Action Date Dose Rate Site fentaNYL 50 mcg/mL 25-100 mcg injection (SUBLIMAZE) 25-100 mcg, INTRAVENOUS, DIRECTED, Starting on Fri07/16/22 at 1130, Until Fri07/16/22 at 1529, DOSING DIRECTED BY PHYSICIAN FOR PROCEDURAL SEDATION ONLY, Intraprocedure Given by LIP 07/16/2022 11:06 AM EST 25 mcg Additional Source Comments Source Comments (unrecognize d section and content) In the event this informatio n is protected by the Federal Confidentiality of Alcohol and Drug Abuse Patient Records regulations: The Federal rules restrict any use of the information to criminally investigate or prosecute any alcohol or drug abuse patient.[facility] the event this information is protected by the Federal Confidentiality of Alcohol and Drug Abuse Patient Records regulations: The Federal rules restrict any use of the information to criminally investigate or prosecute any alcohol or drug abuse patient.[facility] Rehabilitation[facility] the event this information is protected by the Federal Confidentiality of Alcohol and Drug Abuse Patient Records regulations: The Federal rules restrict any use of the information to criminally investigate or prosecute any alcohol or drug abuse patient.[facility] Rehabilitation[facility] the event this information is protected by the Federal Confidentiality of Alcohol and Drug Abuse Patient Records regulations: The Federal rules restrict any use of the information to criminally investigate or prosecute any alcohol or drug abuse patient.[facility] Rehabilitation[facility] the event this information is protected by the Federal Confidentiality of Alcohol and Drug Abuse Patient Records regulations: The Federal rules restrict any use of the information to criminally investigate or prosecute any alcohol or drug abuse patient.[facility] Rehabilitation[facility] the event this information is protected by the Federal Confidentiality of Alcohol and Drug Abuse Patient Records regulations: The Federal rules restrict any use of the information to criminally investigate or prosecute any alcohol or drug abuse patient.[facility] Rehabilitation[facility] the event this information is protected by the Federal Confidentiality of Alcohol and Drug Abuse Patient Records regulations: The Federal rules restrict any use of the information to criminally investigate or prosecute any alcohol or drug abuse patient.[facility] Rehabilitation[facility] the event this information is protected by the Federal Confidentiality of Alcohol and Drug Abuse Patient Records regulations: The Federal rules restrict any use of the information to criminally investigate or prosecute any alcohol or drug abuse patient.[facility] Rehabilitation[facility] the event this information is protected by the Federal Confidentiality of Alcohol and Drug Abuse Patient Records regulations: The Federal rules restrict any use of the information to criminally investigate or prosecute any alcohol or drug abuse patient.[facility] Rehabilitation[facility] the event this information is protected by the Federal Confidentiality of Alcohol and Drug Abuse Patient Records regulations: The Federal rules restrict any use of the information to criminally investigate or prosecute any alcohol or drug abuse patient.[facility] RehabilitationIn the event this information is protected by the Federal Confidentiality of Alcohol and Drug Abuse Patient Records regulations: The Federal rules restrict any use of the information to criminally investigate or prosecute any alcohol or drug abuse patient.[facility] RehabilitationIn the event this information is protected by the Federal Confidentiality of Alcohol and Drug Abuse Patient Records regulations: The Federal rules restrict any use of the information to criminally investigate or prosecute any alcohol or drug abuse patient.[facility] RehabilitationIn the event this information is protected by the Federal Confidentiality of Alcohol and Drug Abuse Patient Records regulations: The Federal rules restrict any use of the information to criminally investigate or prosecute any alcohol or drug abuse patient.[facility] RehabilitationIn the event this information is protected by the Federal Confidentiality of Alcohol and Drug Abuse Patient Records regulations: The Federal rules restrict any use of the information to criminally investigate or prosecute any alcohol or drug abuse patient.[facility] RehabilitationIn the event this information is protected by the Federal Confidentiality of Alcohol and Drug Abuse Patient Records regulations: The Federal rules restrict any use of the information to criminally investigate or prosecute any alcohol or drug abuse patient.[facility] Care Teams (unrecognized sec tion and content) 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 Start Date End Date El Salcido MD [address] [place] [address] PCP - General Internal Medicine 06/22/10 El Salcido MD [address] [place] [address] Internal Medicine 06/22/10 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 Start Date End Date Dinesh Lee [facility] [place] [address] PCP - General Family Practice 03/25/22 El Salcido MD [address] [place] [address] Internal Medicine 06/22/10 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 Start Date End Date LeeDinesh hdz [facility] [place] [address] PCP - General Family Medicine 03/25/22 El Salcido MD [address] [place] [address] Internal Medicine 06/22/10 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 Start Date End Date Dinesh Lee [facility] [place] [address] PCP - General Family Medicine 03/25/22 El Salcido MD [address] [place] [address] Internal Medicine 06/22/10 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 Start Date End Date Dinesh Lee [facility] [place] [address] PCP - General Family Medicine 03/25/22 El Salcido MD [address] [place] [address] Internal Medicine 06/22/10 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 Start Date End Date Dinesh Lee [address] [place] [facility] [place] [address] PCP - General Family Medicine 03/25/22 El Salcido MD [address] [facility] [place] [address] Internal Medicine 06/22/10 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 Start Date End Date Dinesh Lee [facility] [place] [facility] [place] [place] [address] PCP - General Family Medicine 03/25/22 El Salcido MD [address] [facility] [place] [address] Internal Medicine 06/22/10 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 Start Date End Date Dinesh Lee [facility] [place] [facility] [place] [place] [address] PCP - General Family Medicine 03/25/22 El Salcido MD [address] [place] [address] Internal Medicine 06/22/10 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 Start Date End Date Dinesh Lee [facility] [place] [facility] [place] [place] [address] PCP - General Family Medicine 03/25/22 El Salcido MD [address] [facility] [place] [address] Internal Medicine 06/22/10 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 Start Date End Date Dinesh Lee [address] [facility] [place] [place] [address] PCP - General Family Medicine 03/25/22 El Salcido MD [address] [facility] [place] [address] Internal Medicine 06/22/10 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 Start Date End Date Dinesh Lee [facility] [place] [facility] [place] [place] [address] PCP - General Family Medicine 03/25/22 El Salcido MD [address] [place] [address] Internal Medicine 06/22/10 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 Start Date End Date Dinesh Lee [address] [place] [address] PCP - General Family Medicine 03/25/22 El Salcido MD [address] [place], [place] [address] Internal Medicine 06/22/10 Reason for Visit (unrecogniz ed section and content) Specialty Diagnoses / Procedures Referred By Iveth garcia Referred To Contact Physical Therapy / PHYSICAL THERAPY Diagnoses Pes cavus [Q66.70] Callus of foot [L84] Procedures NEW RS PT ORTHOTIC Aidan Quiroz [address] [facility] [address] Frederic Fan PT [address] [facility] [address] Referral ID Status Reason Start Date Expiration Date V isits Requested Visits Authorized [id number] Authorized 08/18/2021 08/17/2022 30 30 Reason Comments PT Eval Reason Comments Consult Hemorrhoids Reason Comments Follow Up Hemorrhoid Banding Reason Comments Follow Up Hemorrhoid banding Reason Comments Follow Up hemorrhoids Reason Comments Appointment Missed appointment Reason Comments Consult Reason Comments Follow Up Hemmorrhoidectomy & colonoscopy Reason Comments Follow Up Hemorrhoidectomy Reason Comments Difficulty Urinating New Patient Reason Comments Post Op hemorrhoidectomy Reason Comments Sinus Problem sinus pressure, ches t congestion, cough x 6pm last night (unrecognized sect ion and content) No Status Records FoundNo Status Records Found INFORMATION SOURCE (unrecogn ized section and content) DATE CREATED AUTHOR AUTHOR'S ORGANIZ ATION 01/25/2023 [facility] FOR RECORDS PERTAINING TO PATIENTS WHO ARE OR HAVE BEEN ENROLLED IN A CHEMICAL DEPENDENCY/SUBSTANCEABUSE PROGRAM, SOME INFORMATION MAY BE OMITTED. This clinical summary was aggregated from multiple sources. Caution should be exercised in using it in the provision of clinical care. This summary normalizes information from multiple sources, and as a consequence, information in this document may materially change the coding, format and clinical context of patient data. In addition, data may be omitted in some cases. CLINICAL DECISIONS SHOULD BE BASED ON THE PRIMARY CLINICAL RECORDS. [facility]. provides no warranty or guarantee of the accuracy or completeness of information in this document.
== END | disposition home or self-care (01) ==
LOC: CT 07:09
PROVIDERS: PCP Internal Medicine; Visit Provider Otolaryngology
DX: J32.8 Other chronic sinusitis (principal)
CPT/HCPCS: 70486